=== PATIENT | male | born 1990 | race African-American/Black ===

== ENCOUNTER 2019-06-25 20:28 | Emergency (ER) | payer MEDICAID ==
[~2019-06-25] VITALS: Ht 165.1 cm; Wt 57.8 kg
[2019-06-25 22:48] VITALS: BP 112/62
== END 2019-06-25 23:15 | disposition home or self-care (01) ==
LOC: ED 21:34
DX: N39.0 Urinary tract infection, site not specified (principal)
CPT/HCPCS: 36415; 80053; 81001; 83690; 85025; 87086; 87491; 87591; 96372; 99283; J0696